=== PATIENT | male | born 1950 | race Caucasian/White ===

== ENCOUNTER 2016-07-05 20:58 | Emergency (ER) | payer OTHER ==
[~2016-07-05] VITALS: Ht 177.8 cm; Wt 65.9 kg
[2016-07-05] MEDS ORDERED: 0.9% Sodium Chloride 1,000 ML IV ONE (20:59)
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
[2016-07-05 21:09] VITALS: BP 175/98; PULSE 82; RESP 12; O2SAT 99
--- NOTE | 2016-07-05 21:37 | DRSVH ---
PROCEDURE: X-RAY CHEST ONE VIEW, PORTABLE ([id number]) INDICATIONS: HEROIN OVERDOSE TECHNIQUE: One view of the chest was acquired. COMPARISON: [facility], [facility], XR CHEST 1VW (PORTABLE), 09/01/2015, 19:07. FINDINGS: Surgical changes and devices: Postsurgical changes in right humerus. Lungs and pleura: Mild bibasilar atelectasis or scars, improved. No pleural effusions or pneumothora x. Mediastinum: Mediastinal contours appear normal. Heart size is normal. Bones and chest wall: No suspicious bony lesions. Overlying soft tissues appear unremarkable. IMPRESSION: No acute cardiopulmonary disease. Dictated by: Estrella Zamarripa M.D. on 07/05/2016 at 21:34 Approved by: Estrella Zamarripa M.D. on 07/05/2016 at 21:35
[2016-07-05 21:53] VITALS: BP 135/79; PULSE 72; RESP 13; O2SAT 98
[2016-07-05 23:08] VITALS: BP 119/76; PULSE 70; RESP 12; O2SAT 99
[2016-07-06 01:39] VITALS: BP 120/68; PULSE 65; RESP 12; O2SAT 98
[2016-07-06 05:15] VITALS: BP 104/64; PULSE 68; RESP 14; O2SAT 96
== END 2016-07-06 05:16 | disposition home or self-care (01) ==
LOC: SED 20:58
DX: T40.1X1A Poisoning by heroin, accidental (unintentional), initial encounter (principal); Y93.89 Activity, other specified; Y92.89 Other specified places as the place of occurrence of the external cause; Y99.8 Other external cause status; J44.9 Chronic obstructive pulmonary disease, unspecified; F17.200 Nicotine dependence, unspecified, uncomplicated; Z59.0 Homelessness; Z86.19 Personal history of other infectious and parasitic diseases